=== PATIENT | female | born 1980 | race Caucasian/White ===

== ENCOUNTER 2018-07-20 15:51 | Emergency (ER) | payer OTHER, BC ==
[2018-07-20] MEDS ORDERED: ACETAMINOPHEN 500 MG TAB PO ONE (16:38)
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
[2018-07-20 18:07] VITALS: BP 149/85
== END 2018-07-20 18:11 | disposition home or self-care (01) ==
DX: S16.1XXA Strain of muscle, fascia and tendon at neck level, initial encounter (principal); Y04.8XXA Assault by other bodily force, initial encounter; Y99.0 Civilian activity done for income or pay